=== PATIENT | male | born 1985 | race Caucasian/White ===

== ENCOUNTER 2016-08-17 12:27 | Emergency (ER) | payer OTHER ==
[~2016-08-17] VITALS: Ht 172.7 cm; Wt 68.0 kg
[~2016-08-17 12:27] MED LIST: A/B OTIC 54 MG/15 ML OTIC; ALPRAZOLAM2 MG PO; ATIVAN 2 MG. TAB2 MG PO; BACTRIM DS 8001 TAB PO; BACTROBAN OINT.15 GM TOP; BLM PO; CLEOCIN HCL300 MG PO; CLONIDINE0.1 MG PO; ESCITALOPRAM10 MG PO; FLEXERIL10 MG PO; HYDROXYZINE HCL50 M1 PO; IBU-8800 MG PO; KEFLEX500 MG PO; MEDROL DOSEPAK1 PAC PO; MEDROL4 M2 PO; MOTRIN 600 MG600 MG PO; MOTRIN800 MG PO; MULTIVITAMIN1 TAB PO; NORCO 325 MG-51 TAB PO; POLYTRIM EYE DR10 ML OPH; SEROQUEL 25MG25 MG PO; SEROQUEL50 MG PO; TESSALON PERLE100 MG PO; TRAMADOL50 MG PO; TRAZODONE50 MG PO; TRIAMCINOLONE A15 GM TOP; VIBRAMYCIN 100100 MG PO; VIVITROL380 MG IM; XANAX2 MG PO; ZOFRAN4 M1 SL
--- NOTE | 2016-08-17 12:36 | ED GENERAL ADULT ---
History of Present Illness General Chief Complaint: General Adult Stated Complaint: BODY PAIN, HX LYME Source: patient Exam Limitations: no limitations Vital Signs & Intake/Output Vital Signs & Intake/Output Vital Signs Date Time Temp Pulse Resp B/P B/P Pulse O2 O2 Flow FiO2 Mean Ox Delivery Rate 08/17 1422 76 126/85 08/17 1234 98.3 78 18 131/75 100 Room Air Allergies Coded Allergies: poison arcadio extract (UNKNOWN 05/20/15) Reconcile Medications Hydroxyzine HCl 50 MG TABLET 1 TAB PO TID PRN dermatitis Methylprednisolone. (Medrol) 4 MG TAB.DS.PK 1 DP PO AD contact dermatitis 6 on day 1 then reduce by one tablet daily until gone Triamcinolone Acetonide 15 GM CREAM..G. 1 ANETTE TOP BID dermatitis triamcinolone 0.1% cream; apply to affected area(s) Triage Note: PT TO ED FOR "ALL OVER BODY PAIN FOR A WEEK" PT ALSO C/O SUBJECTIVE INTERMITTENT FEVER AND HAND NUMBNESS AT NIGHT. Triage Nurses Notes Reviewed? yes HPI: This is 30-year-old male with history of anxiety, previous Lyme disease, recent heroin abuse who presents to the aortic complaint of full body pain, joint pain. He also complains of a sore at the back of his tongue as well as some sore throat. Patient's reported last use of IV heroin was yesterday morning and his left forearm. He does takes a next 2 mg 3 times a day please return to taper off. 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 Denies any poles eye rash. Last treatment for Lyme disease was over 2 years ago with oral antibiotics. The patient was last detoxed from heroin 2 years ago at [facility]. He has had multiple detoxes in the past. Patient uses once a week according to him, more per his mother. Patient denies that this is heroin withdrawal. Past History Travel History Traveled to [place] past 21 day No Medical History Any Pertinent Medical History? 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 No Review of Systems Review of Systems Constitutional: Reports: fever. Denies: chills. Progress Plan of Care: Orders Procedure Date/time Status THROAT CULTURE W/QUICK STREP 08/17 124 Active MONOSPOT TEST 08/17 124 Complete URINE DRUGS OF ABUSE 08/17 124 Complete URINALYSIS 08/17 124 Complete LYME TITRE 08/17 124 Active ETHANOL 08/17 124 Complete COMPREHENSIVE METABOLIC PANEL 08/17 1245 Complete CBC WITHOUT DIFFERENTIAL 08/17 1245 Complete Laboratory Tests 08/17/16 1300: Urine Opiates Screen > 4000.00 H, Methadone Screen < 40, Barbiturate Screen < 60, Ur Phencyclidine Scrn < 6.00, Amphetamines Screen 149, U Benzodiazepines Scrn > 800 H, Urine Cocaine Screen < 50, Urine Cannabis Screen 15.50, Urine Color YEL, Urine Clarity CLEAR, Urine pH 5.5, Ur Specific [place] >= 1.030, Urine Protein TRACE H, Urine Ketones NEG, Urine Nitrite NEG, Urine Bilirubin NEG@ICTO, Urine Urobilinogen 0.2, Ur Leukocyte Esterase NEG, Ur Microscopic SEDIMENT EXAMINED, Urine RBC 3-5, Urine WBC 1-3 H, Ur Epithelial Cells RARE, Urine Mucus MOD H, Urine Hemoglobin TRACE-LYSED H, Urine Glucose NEG 08/17/16 1259: Lyme Disease Antibody Pending 08/17/16 1259: Anion Gap 11, Estimated GFR > 60, BUN/Creatinine Ratio 16.3, Glucose 95, Calcium 9.0, Total Bilirubin 0.4, AST 25, ALT 33, Alkaline Phosphatase 73, Total Protein 7.4, Albumin 4.2, Globulin 3.2, Albumin/Globulin Ratio 1.3, CBC w Diff NO MAN DIFF REQ, RBC 4.71, MCV 85.0, MCH 28.5, RDW 14.4, MPV 7.2 L, Gran % 55.7, Lymphocytes % 28.9, Monocytes % 11.4 H, Eosinophils % 3.6, Basophils % 0.4, Absolute Granulocytes 2.9, Absolute Lymphocytes 1.5, Absolute Monocytes 0.6, Absolute Eosinophils 0.2, Absolute Basophils 0, PUBS MCHC 33.6, Infectious [place] Titer NEGATIVE, Serum Alcohol < 10.0 Departure Departure Time of Disposition: 1406 Disposition: HOME OR SELF CARE Condition: Stable Clinical Impression Primary Impression: Myalgia Referrals: KATHRYN MANDEL MD (PCP/Family) Additional Instructions: please follow up with the list of detox facilities provided follow up with your doctor in the office you will receive a call back if your lyme test is positive take motrin or tylenol as needed for pain return as needed Departure Forms: Customer Survey General Discharge Information
[2016-08-17 13:14] LABS: ABSOLUTE BASOPHIL COUNT 0 /CUMM (0.0-0.2); ABSOLUTE EOSINOPHIL COUNT 0.2 /CUMM (0.0-0.7); ABSOLUTE GRANULOCYTE CT 2.9 /CUMM (1.4-6.5); ABSOLUTE LYMPH COUNT 1.5 /CUMM (1.2-3.4); ABSOLUTE MONOCYTE COUNT 0.6 /CUMM (0.10-0.60); BASOPHIL % 0.4 % (0.0-2.0); EOSINOPHIL % 3.6 % (0-5); GRANULOCYTE % 55.7 % (42.2-75.2); MEAN CORPUSCULAR HGB 28.5 PG (27.0-31.0); MEAN CORPUSCULAR HGB CONC 33.6 G/DL (33.0-37.0); MEAN PLATELET VOLUME 7.2 FL (7.4-10.4); PLATELET COUNT 246 /CUMM (130-400); RBC DISTRIBUTION WIDTH 14.4 % (11.5-14.5); RED BLOOD CELL CT 4.71 /CUMM (4.70-6.10); WHITE BLOOD CELL COUNT 5.1 /CUMM (4.8-10.8)
[2016-08-17 14:22] VITALS: BP 126/85
--- NOTE | 2016-08-17 14:58 | ED GENERAL ADULT ---
History of Present Illness General Chief Complaint: General Adult Stated Complaint: BODY PAIN, HX LYME Source: patient, family, old records Exam Limitations: no limitations Vital Signs & Intake/Output Vital Signs & Intake/Output ED Intake and Output 08/18 0000 08/17 1200 Intake Total Output Total Balance Patient 150 lb Weight Weight Reported by Patient Measurement Method Allergies Coded Allergies: poison arcadio extract (UNKNOWN 05/20/15) Reconcile Medications Hydroxyzine HCl 50 MG TABLET 1 TAB PO TID PRN dermatitis Methylprednisolone. (Medrol) 4 MG TAB.DS.PK 1 DP PO AD contact dermatitis 6 on day 1 then reduce by one tablet daily until gone Triamcinolone Acetonide 15 GM CREAM..G. 1 ANETTE TOP BID dermatitis triamcinolone 0.1% cream; apply to affected area(s) Triage Note: PT TO ED FOR "ALL OVER BODY PAIN FOR A WEEK" PT ALSO C/O SUBJECTIVE INTERMITTENT FEVER AND HAND NUMBNESS AT NIGHT. Triage Nurses Notes Reviewed? yes Onset: Gradual Duration: day(s): (1) Timing: recent history Injury Environment: home Severity: mild No Modifying Factors: none Associated Symptoms: MYALGIAS, SORE THROAT, JOINT PAINS HPI: This is 30-year-old male with history of anxiety, previous Lyme disease, recent heroin abuse who presents to the aortic complaint of full body pain, joint pain. He also complains of a sore at the back of his tongue as well as some sore throat. Patient's reported last use of IV heroin was yesterday morning and his left forearm. He does takes a next 2 mg 3 times a day please return to taper off. 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 Denies any poles eye rash. Last treatment for Lyme disease was over 2 years ago with oral antibiotics. The patient was last detoxed from heroin 2 years ago at [facility]. He has had multiple detoxes in the past. Patient uses once a week according to him, more per his mother. Patient denies that this is heroin withdrawal. Past History Travel History Traveled to [place] past 21 day No Medical History Any Pertinent Medical History? 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 No Review of Systems Review of Systems Constitutional: Reports: chills, fever, malaise, weakness. EENTM: Reports: throat pain. Respiratory: Denies: cough, short of breath, sputum production. Cardiovascular: Denies: chest pain, palpitations, peripheral edema. GI: Reports: nausea. Denies: abdominal pain, vomiting. Genitourinary: Reports: no symptoms. Musculoskeletal: Reports: back pain, joint pain, muscle pain. Skin: Reports: no symptoms. Neurological/Psychological: Reports: anxiety. Denies: confusion, depressed. Hematologic/Endocrine: Denies: bruising, bleeding, polyuria, polydipsia. Immunologic/Allergic: Denies: splenectomy. All Other Systems: Reviewed and Negative Physical Exam Physical Exam General Appearance: alert, awake, lethargic, mild distress, thin Head: atraumatic, normal appearance Eyes: Bilateral: normal appearance, PERRL, EOMI. Ears, Nose, Throat: pharyngeal erythema Neck: normal inspection, supple, full range of motion Respiratory: normal breath sounds, chest non-tender, no respiratory distress Cardiovascular: regular rate/rhythm Peripheral Pulses: 2+ radial (R), 2+ radial (L) Gastrointestinal: normal bowel sounds, soft, non-tender Back: normal inspection, normal range of motion Extremities: normal inspection, normal capillary refill, normal range of motion, no edema Neurologic/Psych: no motor/sensory deficits, awake, alert, oriented x 3 Skin: NO RASH Core Measures ACS in differential dx? No CVA/TIA Diagnosis: No Severe Sepsis Present: No Septic Shock Present: No Progress Differential Diagnoses I considered the following diagnoses in my evaluation of the patient: [LYME DISEASE, ANXIETY, HEROIN ABUSE, OPIATE WITHDRAWAL, MONONUCLEOSIS, STREP PHARYNGITIS] Plan of Care: Orders Procedure Date/time Status THROAT CULTURE W/QUICK STREP 08/17 1249 Active MONOSPOT TEST 08/17 1249 Complete URINE DRUGS OF ABUSE 08/17 1246 Complete URINALYSIS 08/17 1246 Complete LYME TITRE 08/17 1246 Active ETHANOL 08/17 124 Complete COMPREHENSIVE METABOLIC PANEL 08/17 1245 Complete CBC WITHOUT DIFFERENTIAL 08/17 1245 Complete Laboratory Tests 08/17/16 1300: Urine Opiates Screen > 4000.00 H, Methadone Screen < 40, Barbiturate Screen < 60, Ur Phencyclidine Scrn < 6.00, Amphetamines Screen 149, U Benzodiazepines Scrn > 800 H, Urine Cocaine Screen < 50, Urine Cannabis Screen 15.50, Urine Color YEL, Urine Clarity CLEAR, Urine pH 5.5, Ur Specific [place] >= 1.030, Urine Protein TRACE H, Urine Ketones NEG, Urine Nitrite NEG, Urine Bilirubin NEG@ICTO, Urine Urobilinogen 0.2, Ur Leukocyte Esterase NEG, Ur Microscopic SEDIMENT EXAMINED, Urine RBC 3-5, Urine WBC 1-3 H, Ur Epithelial Cells RARE, Urine Mucus MOD H, Urine Hemoglobin TRACE-LYSED H, Urine Glucose NEG 08/17/16 1259: Lyme Disease Antibody Pending 08/17/16 1259: Anion Gap 11, Estimated GFR > 60, BUN/Creatinine Ratio 16.3, Glucose 95, Calcium 9.0, Total Bilirubin 0.4, AST 25, ALT 33, Alkaline Phosphatase 73, Total Protein 7.4, Albumin 4.2, Globulin 3.2, Albumin/Globulin Ratio 1.3, CBC w Diff NO MAN DIFF REQ, RBC 4.71, MCV 85.0, MCH 28.5, RDW 14.4, MPV 7.2 L, Gran % 55.7, Lymphocytes % 28.9, Monocytes % 11.4 H, Eosinophils % 3.6, Basophils % 0.4, Absolute Granulocytes 2.9, Absolute Lymphocytes 1.5, Absolute Monocytes 0.6, Absolute Eosinophils 0.2, Absolute Basophils 0, PUBS MCHC 33.6, Infectious [place] Titer NEGATIVE, Serum Alcohol < 10.0 STERP, MONO NEGATIVE. LABS WNL. 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 (DARNELL ALLAN,APOLINAR) Initial ED EKG: none Departure Departure Time of Disposition: 1458 Disposition: HOME OR SELF CARE Condition: Stable Clinical Impression Primary Impression: Heroin abuse Secondary Impressions: Anxiety, Myalgia Referrals: KATHRYN MANDEL MD (PCP/Family) Additional Instructions: follow up with your doctor in the office you will receive a call back if your lyme test is positive take motrin or tylenol as needed for pain return as needed Departure Forms: Customer Survey [facility] Facilities List General Discharge Information Release- Work Critical Care Note Critical Care Note Critical Care Time: non-applicable
== END 2016-08-17 14:23 ==
LOC: ERH 12:27
PROVIDERS: Emergency Medicine
DX: F11.10 Opioid abuse, uncomplicated (principal); F41.9 Anxiety disorder, unspecified; M79.1 Myalgia; R07.0 Pain in throat
CPT/HCPCS: 86618; 80307; 81001; 87147; G0480

== ENCOUNTER 2017-11-11 17:53 | Emergency (ER) | payer OTHER ==
[~2017-11-11] VITALS: Ht 172.7 cm; Wt 70.3 kg
[~2017-11-11 17:53] MED LIST changes: +XANAX2 M1 PO
[2017-11-11] MEDS ORDERED: XANAX2 M1 PO (20:56)
--- NOTE | 2017-11-11 20:57 | ED GENERAL ADULT ---
History of Present Illness General Chief Complaint: General Adult Stated Complaint: MED REFILL Source: patient Exam Limitations: no limitations Vital Signs & Intake/Output Vital Signs & Intake/Output Vital Signs Date Time Temp Pulse Resp B/P B/P Pulse O2 O2 Flow FiO2 Mean Ox Delivery Rate 11/11 2126 Room Air 11/11 2126 97.9 87 17 134/93 100 Room Air 11/11 1900 97.0 70 16 122/85 95 Room Air ED Intake and Output 11/12 0000 11/11 1200 Intake Total Output Total Balance Patient 155 lb Weight Weight Reported by Patient Measurement Method Allergies Coded Allergies: poison arcadio extract (UNKNOWN 05/20/15) Reconcile Medications Alprazolam (Xanax) 2 MG TABLET 1 TAB PO BIDP PRN anxiety Alprazolam (Xanax) 2 MG TABLET 1 TAB PO BIDP PRN anxiety Alprazolam (Xanax) 2 MG TABLET 1 TAB PO BID PRN ANXIETY Hydroxyzine Hydrochloride (Atarax) 50 MG TABLET 1 TAB PO TID PRN dermatitis Methylprednisolone. (Medrol) 4 MG TAB.DS.PK 1 DP PO AD contact dermatitis 6 on day 1 then reduce by one tablet daily until gone Triamcinolone Acetonide 15 GM CREAM..G. 1 ANETTE TOP BID dermatitis triamcinolone 0.1% cream; apply to affected area(s) Triage Note: pt to ed for refill of xanax. "my doctor is sick in the hospital" Triage Nurses Notes Reviewed? yes Onset: Abrupt Duration: hour(s): Timing: constant HPI: 32-year-old male with a history of depression, and 89, panic attacks presenting for refill on his Xanax prescription. Reports that his Xanax is prescribed by a psychiatrist, but that his psychiatrist has been in the hospital for the past 2- 3 weeks. The office is currently in the process of arranging alternate providers, but states that he has not been able to obtain a new one yet. Patient states that he takes 2 mg of Xanax twice a day. Last dose was this morning. Denies nausea, vomiting, diarrhea, abdominal pain, tremors, diaphoresis (Kathrin Concepcion) Past History Travel History Traveled to [place] past 21 day No Medical History Any Pertinent Medical History? 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 No (Kathrin Concepcion) Review of Systems Review of Systems Constitutional: Reports: no symptoms. EENTM: Reports: no symptoms. Respiratory: Reports: no symptoms. Cardiovascular: Reports: no symptoms. GI: Reports: no symptoms. Genitourinary: Reports: no symptoms. Musculoskeletal: Reports: no symptoms. Skin: Reports: no symptoms. Neurological/Psychological: Reports: no symptoms. Hematologic/Endocrine: Reports: no symptoms. Immunologic/Allergic: Reports: no symptoms. All Other Systems: Reviewed and Negative (Kathrin Concepcion) Physical Exam Physical Exam General Appearance: well developed/nourished, no apparent distress, alert, awake Comments: Gen.: Well-nourished, well-developed, no acute distress. Head: Normocephalic, atraumatic. Eyes: Normal inspection bilaterally Ears: Normal inspection bilaterally Nose: Normal inspection Neck: Normal inspection Lungs: clear to auscultation bilaterally, normnal breath sounds Heart: regular rate and rhythm Abdomen: soft and non-tender Extremities: Normal inspection Neurologic: alert and oriented x3, steady gait Skin: warm and dry Psychiatric: Normal mood and affect, no apparent delusions or hallucinations, behavior appropriate Core Measures ACS in differential dx? No CVA/TIA Diagnosis: No Sepsis Present: No Sepsis Focused Exam Completed? No (Kathrin Concepcion) Progress Differential Diagnoses I considered the following diagnoses in my evaluation of the patient: [ Benzodiazepine dependence, will concern for benzodiazepine withdrawal] Plan of Care: Called the patient's psychiatrist's office in [place] and there was a voicemail stating that the patient's doctor has been out on medical leave since October 24. The voicemail instructed patient to call the office technician Rose to arrange alternative care with another provider. Patient given 4 doses of Xanax prescription to last until Monday morning when he can call the office technician and arrange a plan at that time. Counseled on supportive care and strict return precautions. Initial ED EKG: none (Kathrin Concepcion) Departure Departure Disposition: HOME OR SELF CARE Condition: Stable Clinical Impression Primary Impression: Medication refill Referrals: Unknown (PCP/Family) Additional Instructions: Take her Xanax as prescribed. Follow-up with the assistant corporate secretary for your psychiatrist office on Monday at [phone]. Return to the emergency department for any new or worsening symptoms. Departure Forms: Customer Survey General Discharge Information Prescriptions: Current Visit Scripts Alprazolam (Xanax) 1 TAB PO BIDP PRN anxiety #4 TAB (Kathrin Concepcion) PA/BRANCH MANAGER Co-Sign Statement Statement: ED Attending supervision documentation- I saw and evaluated the patient. I have also reviewed all the pertinent lab results and diagnostic results. I agree with the findings and the plan of care as documented in the PA's/BRANCH MANAGER's documentation. x I have reviewed the ED Record and agree with the PA's/BRANCH MANAGER's documentation. [] Additions or exceptions (if any) to the PAs/BRANCH MANAGER's note and plan are summarized below: [] (Sandhya ALLAN,Kalpesh) Critical Care Note Critical Care Note Critical Care Time: non-applicable (Kathrin Concepcion)
[2017-11-11 21:27] VITALS: BP 134/93
== END 2017-11-11 21:30 ==
LOC: ERH 17:53
DX: Z76.0 Encounter for issue of repeat prescription (principal); F17.210 Nicotine dependence, cigarettes, uncomplicated; F41.9 Anxiety disorder, unspecified; F32.9 Major depressive disorder, single episode, unspecified; F41.0 Panic disorder [episodic paroxysmal anxiety]
CPT/HCPCS: 99281